=== PATIENT | female | born 1930 | race Caucasian/White ===

== ENCOUNTER 2017-09-16 11:45 | Inpatient (IN) | payer MEDICARE, OTHER ==
[2017-09-16] VITALS (11 sets, daily range): BP systolic 80–111; BP diastolic 41–66; PULSE 73–148; RESP 14–22; Ht 157.5 cm; Wt 71.5 kg
[~2017-09-16] VITALS: Ht 157.5 cm; Wt 71.5 kg
[2017-09-16] MEDS ORDERED: ATOR40TA68 PO (13:28)
[2017-09-16] MEDS ORDERED: ASPI325T4 PO (13:28)
[2017-09-16] MEDS ORDERED: METO-448 PO (13:28)
[2017-09-16] MEDS ORDERED: PANT40TA4 PO (13:28)
[2017-09-16] MEDS ORDERED: NITROL TD (13:36)
[2017-09-16] MEDS ORDERED: FURO40TA4 PO (13:36)
[2017-09-16] MEDS ORDERED: CARV6.2579 PO (13:36)
[2017-09-16] MEDS ORDERED: NITROGLYCERIN (IC) 100 MCG/ML INJ ONE (13:55)
[2017-09-16] MEDS ORDERED: IODIXANOL LOCM 100 ML BTL ONE (13:55)
[2017-09-16] MEDS ORDERED: VERAPAMIL 5 MG INJ ONE (13:55)
[2017-09-16] MEDS ORDERED: LIDOCAINE 1% (MDV) 20 ML INJ ONE (13:55)
[2017-09-16] MEDS ORDERED: MIDAZOLAM 1 MG/ML 2 ML INJ ONE (13:55)
[2017-09-16] MEDS ORDERED: FENTAnyl 50 MCG/ML VIAL ONE (13:55)
[2017-09-16] MEDS ORDERED: HEPARIN 1000 UNITS/ML 10 ML INJ ONE (13:55)
[2017-09-16] MEDS ORDERED: BIVALIRUDIN 250MG /NS 50 ML 50 ML IVPB ONE ×2 (14:52→15:49)
[2017-09-16] MEDS ORDERED: ASPIRIN 325 MG TAB ONE (14:52)
[2017-09-16] MEDS ORDERED: CLOPIDOGREL 300 MG TAB ONE (14:52)
[2017-09-16] MEDS ORDERED: FUROSEMIDE 40 MG INJ ONE ×2 (15:40→16:06)
[2017-09-16] MEDS: EPTIFIBATIDE 100 ML IV SCH ×2 (17:00→18:53)
--- NOTE | 2017-09-16 17:00 | OPR ---
Date/Time of Note Date/Time of Note DATE: 09/16/17 TIME: 17:00 Operative Report Preoperative Diagnosis NSTEMI, cardiomyopathy Postoperative Diagnosis NSTEMI, cardiomyopathy Surgeon see signature line Plugger Man none Anesthesia Type: moderate sedation Estimated Blood Loss: minimal Transfusion none Specimen none Grafts/Implants none Complications none Procedure Description Procedure Date: Food Storeroom Clerk/surgeon: Otilio Schwartz MD. Procedures Performed: 1)Left heart catheterization with selective left and right coronary angiography. 2)Complex two stent bifurcation balloon angioplasty and stenting of the mid LAD with a Synergy 2.5 x 16 and ostial/prox diag with a 2.25 x 20 drug eluting stent complicated by stent thrombosis and eventual ANGELIQUE 1 flow in the diagonal. 3)Right femoral angiography Pre-operative Diagnosis:NSTEMI, cardiomyopathy Post-operative Diagnosis:NSTEMI, cardiomyopathy Indications: 87 yo F with no prior history who presented to [facility] with SOB and was found to have an NSTEMI and CHF. EF was found to be 30 % with LAD territory infarct which likely occurred one month prior when the pt had symptoms. The plan was to do a diagnostic angiography and if the LAD was occluded to then proceed with viability scan but if it were open, to stent if possible. The pt and family were agreeable so the pt was transferred for cardiac cath at [facility]. Description of Procedure: After informed consent, the patient was brought to the cardiac catheterization lab. The procedure site was prepped and draped in usual manner. The patient was premedicated with versed 0.5 mg . 2 mL lidocaine was injected into the left wrist. The radial artery was attempted to be cannulated using ultrasound but was not possible due to vessel size and calcification. Next 5 mL lidocaine was injected into the right groin.Next using micropuncture and the Seldinge technique, the 6 guamanian sheath was inserted into the right femoral artery. Next using the JL4 and JR4, selective angiography of the left and right coronary arteries were obtained. Of note on both catheter exchanges, the femoral sheath clotted and had to be replaced. The pigtail was then advanced into the ventricle and hemodynamics obtained. Left ventricle angiography was not obtained. The decision was made to proceed with PCI of the LAD with provisional technique for the diagonal. A 7 guamanian sheath was inserted. A 6 guamanian JL 3.5 guide was advanced and engaged into the left coronary artery. After appropriate anticoagulation and antiplatelets were given, the Runthrough angioplasty wire was advanced past the LAD lesion and a second wire was advanced into the diagonal. As mentioned, the plan was for balloon angioplasty and stenting only of the LAD however after balloon angioplasty of the LAD with a h2.5 x 12 balloon , there was 99% stenosis and ANGELIQUE 1 flow of the diagonal. The decision was made to dilate the ostial diagonal lesion which was attempted with a 2.0 x 8 balloon. After the dilation however there was a dissection noted and ANGELIQUE 0-1 flow. This was ballooned again and flow restored but again recoiled and flow was lost. At this point the decision was made to proceed with bifurcation stenting using the mini-crush technique. The Synergy 2.25 x 20 stent was advanced and positioned in the diag and extending to the LAD. Then the Synergy 2.5 x 16 stent was positioned in the mid LAD. First the diagonal stent was deployed at nominal pressure. Then the diagonal wire was removed. Then the LAD stent was deployed at nominal pressure. Angiography revealed ANGELIQUE 3 flow to both vessels without further dissection. Attempts were made to rewire the diagonal for possible kissing balloons. This was not possible so the decision was made to post dilate the LAD stent and leave the diagonal (understanding the risk of restenosis at the expense of increased radiation and contrast use). Angiography prior to post dilation unfortunately showed thrombosis of the diagonal stent with thrombus in the LAD stent as well. The LAD stent was dilated with the 2.75 x 12 NC at nominal pressure. Angiography revealed that the LAD stent thrombus had resolved but still no flow in the diagonal. ACT was checked and was >350 so the angiomax was functional. Integrilin was started. Another attempt was made to wire the diagonal this time with a Fielder XT wire. The wire was able to cross into the diagonal but attempts to pass a 1.5 balloon were no successful. At this time, the pt was having ongoing SOB and likely pulm edema. The flow to the diag was now ANGELIQUE 1 and so the procedure was terminated with the hope of flow eventually being restored to the diagonal with continuation of integrilin. At the end of the case, the pt had no chest pain but had SOB and had e/o CHF by exam. She was hemodynamically stable however. After the case, the 7 guamanian sheath was also noted to have clotted. Findings: Anatomy/Hemodynamics: Left main: normal LAD: mid 90% at diagonal Diagonal: ostial 70% Circumflex: mid 50% Obtuse marginal: Luminal irregularities RCA:small vessel with mid 70% PDA:Luminal irregulLuminal irregularities arities PLV:Luminal irregularities LV angiography:not done LV-Ao:no gradient LVEDP: 23 mmHg Contrast used: 190mL Fluoroscopy time: Medications used: Versed 0.5mg Fentanyl 25mcg Angiomax integrilin ASA 325 plavix 600 Equipment used: 6 guamanian JL 3.5 guide Runthrough angioplasty wire x2, PT light, Fielder XT 2.5 x 12 balloon, 2.0 x 8, 1.5 x 8 Synergy 2.5 x 16 drug eluting stent (LAD) Synergy 2.25 x 20 drug eluting stent (diag) (mini-crush) 2.75 x 12 noncompliant balloon Estimated blood loss<10 mL. Specimen: none Grafts/implants: none Complications: none Assessment: NSTEMI s/p complex bifurcation PCI of LAD/diag with stent thrombosis and ANGELIQUE 1 flow in diag Stent thrombosis: Unusual to occur so rapidly during the case with therapeutic angiomax. The pt also had 3 sheaths thrombose so ?hypercoagulable state vs less likely plavix resistance but to be safe will switch to brilinta Acute systolic heart failure: EF 30%. Worse during case CAD with residual RCA disease can be treated PRN ?Hypercoagulable state: three different femoral sheaths thrombosed as did her stents even while on angiomax which is very unusual Plan: -integrilin overnight -continue angiomax 4 hours post-PCI -after angiomax stopped for 2 hours, brilinta 180mg and 90mg BID thereafter -ASA 81mg -will not repeat cath to evaluate diagonal stent unless the pt has significant symptoms as there is a chance flow may be restored but higher risk of complications OTILIO SCHWARTZ Sep 16, 2017 17:00
--- NOTE | 2017-09-16 17:56 | CONS ---
Date/Time of Note Date/Time of Note DATE: 09/16/17 TIME: 17:54 Assessment/Plan Assessment/Plan Chief Complaint/Hosp Course NSTEMI s/p complex bifurcation PCI of LAD/diag with stent thrombosis and ANGELIQUE 1 flow in diag Stent thrombosis: Unusual to occur so rapidly during the case with therapeutic angiomax. The pt also had 3 sheaths thrombose so ?hypercoagulable state vs less likely plavix resistance but to be safe will switch to brilinta Acute systolic heart failure: EF 30%. Worse during case CAD with residual RCA disease can be treated PRN ?Hypercoagulable state: three different femoral sheaths thrombosed as did her stents even while on angiomax which is very unusual Plan: -integrilin overnight -continue angiomax 4 hours post-PCI -after angiomax stopped for 2 hours, brilinta 180mg and 90mg BID thereafter -ASA 81mg -will not repeat cath to evaluate diagonal stent unless the pt has significant symptoms as there is a chance flow may be restored but higher risk of complications -lasix 40mg IV x 2 given during case, will see how pt responds and if she needs more -lipitor if agreeable -coreg 3.125mg BID -EKG post cath -CXR Problems: Consultation Date/Type/Reason Admit Date/Time Sep 16, 2017 at 16:40 Initial Consult Date 24 HR Interval Summary Free Text/Dictation S/p complex PCI of LAD/diagonal. Please see report. Pt with flash pulmonary edema during case and occluded diagonal stent. Exam/Review of Systems Vital Signs Vitals Vital Signs Date Time Temp Pulse Resp B/P Pulse Ox O2 Delivery O2 Flow Rate FiO2 09/16/17 12:35 97.5 80 20 103/53 93 Room Air 2.0 Exam Constitutional: alert, oriented Psych: no complaints Head: atraumatic, normocephalic Neck: jvd (9cm) Respiratory: crackles/rales (mid lungs ), No clear to auscultation Cardiovascular: edema (1+), regular rate and rhythm, No systolic murmur Gastrointestinal: soft Neurological: nl mental status, nl speech Medications Medications Current Medications Miscellaneous Information (* Miscellaneous Pharmacy Order) HOLD all METFORMIN ... ONCE ONCE XX ; Start 09/16/17 at 17:00; Stop 09/16/17 at 17:01 Aspirin (Aspirin) 81 mg DAILY PO ; Start 09/17/17 at 09:00 Clopidogrel Bisulfate (plaVIX) 75 mg DAILY PO ; Start 09/17/17 at 09:00 Atorvastatin Calcium (Lipitor) 40 mg HS PO ; Start 09/16/17 at 21:00 Carvedilol (Coreg) 3.125 mg BID PO ; Start 09/16/17 at 21:00 ARIANA CHICAS Sep 16, 2017 17:56
[2017-09-16] MEDS ORDERED: BIVALIRUDIN 250MG /NS 50 ML 50 ML IVPB SCH (18:00)
--- NOTE | 2017-09-16 19:37 | RADRPT ---
PROCEDURE: XR, Chest. CLINICAL INDICATION: Dyspnea. TECHNIQUE: AP chest COMPARISON: None available. FINDINGS: There is no acute infiltrate in the lungs. There is large bilateral pleural effusion. The heart is somewhat enlarged with interstitial pulmonary edema and pulmonary venous congestion.. IMPRESSION: 1. Large bilateral pleural effusion. 2. Mild cardiomegaly with interstitial pulmonary edema/pulmonary venous congestion. RPTAT: GG .Warren Bella MD, MD Date Time Electronically viewed and signed by .Warren Bella MD, on 09/16/2017 19:37 .Y/
[2017-09-16] MEDS: ATORVASTATIN 40 MG TAB PO SCH (21:00)
[2017-09-16] MEDS ORDERED: TICAGRELOR 90 MG TABLET PO ONE (22:00)
[2017-09-17] VITALS (23 sets, daily range): BP systolic 75–129; BP diastolic 52–79; PULSE 70–96; RESP 12–36
--- NOTE | 2017-09-17 02:15 | HP ---
DATE OF ADMISSION: 09/16/2017 CHIEF COMPLAINT: CHF, NON-STEMI. HISTORY OF PRESENT ILLNESS: This is an 87-year-old female with a past medical history of obesity, w ho presented to an outside hospital Emergency Room complaining of worsening shortness of breath x1 w janna. The patient states that during the past week she has had increasing dyspnea on exertion, incre ased lower extremity edema and progressive decline in physical health. The patient upon arrival to an outside hospital was noted to be in CHF. She was admitted, was treated with diuretic therapy. T he patient also was ruled in for a non-ST elevation myocardial infarction and was transferred to [facility] acute rehab and underwent cardiac catheterization by Dr. Schwartz; during the cou rse of catheterization patient had a PCI to the left anterior descending and diagonal artery disease with stent thrombosis and ANGELIQUE 1 flow in the diagonal. The patient was placed on Angiomax and Inte grilin and admitted to ICU for evaluation. The patient also noted to be in pulmonary edema and was given diuretic therapy. No other events noted. symptoms hematochezia. PAST MEDICAL HISTORY: History of obesity. PAST SURGICAL HISTORY: The patient had shoulder surgery in the past. FAMILY HISTORY: Noncontributory. SOCIAL HISTORY: Does not drink, smoke or do drugs. MEDICATIONS: The patient's medications have been reviewed. The patient has no outpatient medicatio ns. ALLERGIES: NO KNOWN DRUG ALLERGIES. REVIEW OF SYSTEMS: A 14-point review of systems was conducted. Pertinent positives stated in HPI, otherwise negative. PHYSICAL EXAMINATION: VITAL SIGNS: 111/66, respirations 14, pulse 89, temperature 98.0. HEENT: Head is normocephalic. NECK: Supple. HEART: Regular rate. LUNGS: Show diminished breath sounds at the base. ABDOMEN: Soft, nontender to palpation without rebound or guarding. EXTREMITIES: Negative for clubbing, cyanosis, positive edema. DERMATOLOGIC: No rashes. MUSCULOSKELETAL: No joint effusions. NEUROLOGIC: No focal deficits. LABORATORY DATA: from outside hospital was reviewed. Current laboratory data is pending. ASSESSMENT AND PLAN: This is an 87-year-old female who presents with: 1. Non-ST elevation myocardial infarction. The patient is status post percutaneous coronary interv ention to the left anterior descending and diagonal with stent thrombosis. Continue current medical management. Continue aspirin, Plavix. Will continue Integrilin. 2. Acute systolic heart failure. Patient has ejection 30%. Continue current diuretic regimen. 3. Coronary artery disease. Continue medical management. 4. Questionable hypercoagulable state. The patient had an apparent stent thrombosis during the hos pital course. At this point, we will continue current medical management with aspirin and Brilinta. Continue Integrilin. 5. Obesity. Continue dietary modification. Please note, I spent up to 25 minutes of face to face time with the patient. The patient is FULL CO DE. Dictated By: RY MARION DO NR/NTS Conf#: [id number] DID#: [id number] CC: ARIANA SCHWARTZ MD;*End*
[2017-09-17 06:12] LABS: ADD UMIC YES; UR ASCORBIC ACID NEGATIVE (NEGATIVE); UR BILIRUBIN (Dip) NEGATIVE (NEGATIVE); UR BLOOD (Dip) 3+ mg/dL (NEGATIVE); UR CLARITY CLEAR (CLEAR); UR COLOR YELLOW (YELLOW); UR GLUCOSE (Dip) NEGATIVE (NEGATIVE); UR KETONES (Dip) NEGATIVE (NEGATIVE); UR LEUKOCYTE ESTERASE (Dip) NEGATIVE Leu/ul (NEGATIVE); UR NITRITE (Dip) NEGATIVE (NEGATIVE); UR RBC > 182 /HPF (0-5); UR SPECIFIC GRAVITY (Dip) 1.048 (1.003-1.030); UR TOTAL PROTEIN (Dip) NEGATIVE (NEGATIVE); UR UROBILINOGEN (Dip) NEGATIVE (NEGATIVE)
[2017-09-17] MEDS ORDERED: ACETAMINOPHEN 325 MG TAB PO PRN (08:00)
[2017-09-17] MEDS ORDERED: ONDANSETRON 4 MG TAB PO PRN (08:00)
[2017-09-17] MEDS ORDERED: ZOLPIDEM 5 MG TAB PO PRN (08:00)
[2017-09-17 08:06] LABS: ABNORMAL IP MESSAGE 1; BASOPHILS % 0.2 % (0.0-2.0); EOSINOPHILS # 0.1 10^3/ul (0.0-0.5); HEMATOCRIT 36.3 % (37.0-47.0); HEMOGLOBIN 12.5 g/dl (12.0-16.0); LYMPHOCYTES # 0.5 10^3/ul (0.8-2.9); LYMPHOCYTES % 4.9 % (15.0-51.0); MEAN CORPUSCULAR HEMOGLOBIN 31.4 pg (29.0-33.0); MEAN CORPUSCULAR HGB CONC 34.4 g/dl (32.0-37.0); MEAN CORPUSCULAR VOLUME 91.2 fl (82.0-101.0); MEAN PLATELET VOLUME 10.2 fl (7.4-10.4); MONOCYTE # 1.1 10^3/ul (0.3-0.9); MONOCYTES % 10.1 % (0.0-11.0); NEUTROPHILS % 83.4 % (39.0-77.0); PLATELET COUNT 352 10^3/UL (140-415); RED BLOOD COUNT 3.98 10^6/ul (4.20-5.40); RED CELL DISTRIBUTION WIDTH 12.7 % (11.5-14.5); WHITE BLOOD COUNT 10.8 10^3/ul (4.8-10.8)
[2017-09-17 08:11] LABS: POSITIVE DIFF @See below
[2017-09-17 08:25] LABS: CALCIUM 9.1 mg/dl (8.4-10.2); CREATININE 0.79 mg/dl (0.44-1.00); PHOSPHORUS 3.6 mg/dl (2.5-4.9)
--- NOTE | 2017-09-17 08:38 | CONS ---
Date/Time of Note Date/Time of Note DATE: 09/17/17 TIME: 08:33 Assessment/Plan Assessment/Plan Chief Complaint/Hosp Course NSTEMI s/p complex bifurcation PCI of LAD/diag with stent thrombosis and ANGELIQUE 1 flow in diag Stent thrombosis: Unusual to occur so rapidly during the case with therapeutic angiomax. The pt also had 3 sheaths thrombose so ?hypercoagulable state vs less likely plavix resistance but to be safe switched to brilinta Acute systolic heart failure: EF 30%. Worse during case. Now better after diuresis. Mild CHF still by exam CAD with residual RCA disease can be treated PRN ?Hypercoagulable state: three different femoral sheaths thrombosed as did her stents even while on angiomax which is very unusual -d/c integrilin at 10am -ASA 81mg -ticagrelor 90mg BID -lipitor if agreeable (has been refusing) -coreg 3.125mg BID -replete lytes -would keep in ICU one more day unless there is a bed shortage at which point can go to tele -repeat echo to eval lateral wall Problems: Consultation Date/Type/Reason Admit Date/Time Sep 16, 2017 at 16:40 Type of Consultation: Cardiology 24 HR Interval Summary Free Text/Dictation Some runs of NSVT early after cath but none since. No chest pain. Still with mild SOB but improved. No issues on integrilin Exam/Review of Systems Vital Signs Vitals Vital Signs Date Time Temp Pulse Resp B/P Pulse Ox O2 Delivery O2 Flow Rate FiO2 09/17/17 05:00 83 32 117/70 95 Nasal Cannula 4.0 09/17/17 04:00 98.0 Intake and Output 09/16/17 09/16/17 09/17/17 15:00 23:00 07:00 Intake Total 128 ml 230.4 ml Output Total 360 ml 390 ml Balance -232 ml -159.6 ml Exam Constitutional: alert, oriented Psych: nl mood/affect, no complaints Head: atraumatic, normocephalic Neck: jvd (8cm) Respiratory: crackles/rales (mild at bases ), No clear to auscultation Cardiovascular: edema (1+), regular rate and rhythm, No systolic murmur Gastrointestinal: non-tender, soft Extremities: other (right groin no hematoma) Neurological: nl mental status, nl speech Results Result Diagram: 09/17/17 0800 09/17/17 0800 Results 24 hrs Laboratory Tests Test 09/16/17 22:00 09/17/17 08:00 Urine Color YELLOW Urine Clarity CLEAR Urine pH 6.0 Urine Specific [place] 1.048 H Urine Ketones NEGATIVE Urine Nitrite NEGATIVE Urine Bilirubin NEGATIVE Urine Urobilinogen NEGATIVE Urine Leukocyte Esterase NEGATIVE Urine Microscopic RBC > 182 H Urine Microscopic WBC 1 Urine Hemoglobin 3+ H Urine Random Creatinine 42.74 Urine Random Sodium 58 Urine Glucose NEGATIVE Urine Total Protein 14.0 H White Blood Count 10.8 Red Blood Count 3.98 L Hemoglobin 12.5 Hematocrit 36.3 L Mean Corpuscular Volume 91.2 Mean Corpuscular Hemoglobin 31.4 Mean Corpuscular Hemoglobin Concent 34.4 Red Cell Distribution Width 12.7 Platelet Count 352 Mean Platelet Volume 10.2 Neutrophils % 83.4 H Lymphocytes % 4.9 L Monocytes % 10.1 Eosinophils % 1.0 Basophils % 0.2 Nucleated Red Blood Cells % 0.0 Neutrophils # 9.0 H Lymphocytes # 0.5 L Monocytes # 1.1 H Eosinophils # 0.1 Basophils # 0.0 Nucleated Red Blood Cells # 0.0 Sodium Level 135 Potassium Level 3.0 L Chloride Level 97 Carbon Dioxide Level 28 Anion Gap 13 Blood Urea Nitrogen 26 H Creatinine 0.79 Glucose Level 119 Calcium Level 9.1 Phosphorus Level 3.6 Magnesium Level 2.0 Medications Medications Current Medications Aspirin (Aspirin) 81 mg DAILY PO ; Start 09/17/17 at 09:00 Atorvastatin Calcium (Lipitor) 40 mg HS PO ; Start 09/16/17 at 21:00 Carvedilol (Coreg) 3.125 mg BID PO ; Start 09/16/17 at 21:00 Ticagrelor 90 mg 90 mg BID PO ; Start 09/17/17 at 09:00 Eptifibatide (Integrilin) 100 ml @ 4.29 mls/hr [id number] IV Last administered on 09/16/17t 17:00; Admin Dose 4.29 MLS/HR; Start 09/16/17 at 18:00; Stop at 10:00 Furosemide (Lasix) 20 mg DAILY IV ; Start 09/17/17 at 09:00 Acetaminophen (Tylenol Tab) 650 mg Q6H PRN PO PAIN AND OR ELEVATED TEMP; Start 09/17/17 at 08:00 Ondansetron HCl (Zofran Tab) 4 mg Q6H PRN PO NAUSEA AND/OR VOMITING; Start at 08:00 Zolpidem Tartrate (Ambien) 5 mg HS PRN PO INSOMNIA; Start 09/17/17 at 08:00 ARIANA CHICAS Sep 17, 2017 08:38
[2017-09-17] MEDS: TICAGRELOR 90 MG TABLET PO SCH ×2 (08:58→20:29)
[2017-09-17] MEDS ORDERED: FUROSEMIDE 20 MG INJ IV SCH (09:00)
[2017-09-17] MEDS ORDERED: CLOPIDOGREL 75 MG TAB PO SCH (09:00)
[2017-09-17] MEDS: ASPIRIN 81 MG TAB PO SCH (09:00)
[2017-09-17] MEDS ORDERED: POTASSIUM CHLORIDE 20 MEQ POWDER FOR ORAL SOLN PO ONE (09:00)
[2017-09-17] MEDS: POTASSIUM CHLORIDE 50 ML IVPB SCH ×2 (09:04→11:30)
[2017-09-17] MEDS ORDERED: MAGNESIUM SULFATE 2 GM/50 ML 50 ML IVPB ONE (10:30)
--- NOTE | 2017-09-17 10:35 | RADRPT ---
PROCEDURE: XR Chest. CLINICAL INDICATION: Shortness of breath TECHNIQUE: Single AP view of the chest was obtained COMPARISON: Yesterday FINDINGS: Stable cardiomegaly and pleural effusions. Decreased patchy opacities in the upper lungs. IMPRESSION: Improved aeration at the upper lungs bilaterally. Stable moderate pleural effusions with cardiomegal y. RPTAT: HMPE Destiny Mckeon Physician Date Time Electronically viewed and signed by Destiny Mckeon Physician on 09/17/2017 10:35 KS/
--- NOTE | 2017-09-17 12:22 | PN ---
DATE: 09/17/2017 SUBJECTIVE: The patient had insomnia last night, unable to sleep. No other events noted. No hemop tysis, hematemesis or hematochezia. The patient is complaining of some mild shortness of breath. OBJECTIVE: VITAL SIGNS: Blood pressure is 117/70, pulse 83, temperature 98.0, saturating 99% on 4 liters nasal cannula. HEENT: Head is normocephalic. Pupils are reactive to light. NECK: Supple. HEART: Regular rate. LUNGS: Show diminished breath sounds at base. Positive rhonchi and crackles. ABDOMEN: Soft, nontender to palpation. No rebound or guarding. EXTREMITIES: Negative for clubbing, cyanosis. Trace edema. DERMATOLOGIC: No rashes. MUSCULOSKELETAL: No joint effusions. NEUROLOGIC: No focal deficits. LABORATORY DATA: From this morning is currently pending. The patient's urinalysis did show a RBCs greater than 182, +3 hemoglobin, and protein creatinine ratio of 500 mg per gram of creatinine. IMAGING: Chest x-ray shows large bilateral pleural effusions, cardiomegaly with pulmonary edema, pu lmonary vascular congestion. ASSESSMENT AND PLAN: 1. Non-ST elevation myocardial infarction. The patient is status post percutaneous coronary interv ention with intervention to left anterior descending and diagonal with stent thrombosis. Continue c urrent medical management. Continue Brilinta, aspirin and Coreg. 2. Acute diastolic heart failure. The patient currently decompensated. Continue diuretic regimen. 3. Coronary artery disease. Continue medical management. 4. Obesity. Continue dietary modification. 5. Gastrointestinal and deep vein thrombosis prophylaxis. Continue proton pump inhibitor and seque ntial leg squeezers. 5. Questionable hypercoagulable state. Will continue to monitor. 6. Debility. We will place a physical therapy consult for evaluation. Dictated By: RY MARION DO NR/LIANET Conf#: [id number] DID#: [id number] CC: ARIANA CHICAS MD;*EndCC*
--- NOTE | 2017-09-17 15:15 | RADRPT ---
Vent Rate: 76 bpm RR Interval: 0 msec MS Interval: 164 msec QRS Duration: 100 msec QT Interval: 436 msec QTC Interval: 490 msec P-R-T [place]: 58 - 92 - 102 degrees Normal sinus rhythm Cannot rule out Inferior infarct , age undetermined Anterolateral infarct , age undetermined Abnormal ECG Electronically Signed By: Stuart aJved [id number]
--- NOTE | 2017-09-17 17:41 | RADRPT ---
Echocardiogram Report Patient Name: RAO PULIDO Gender: Female Date: 1930 Study Date: 17-Sep-2017 Adhesive Bandage Making Operator: Kathy [facility] Location: [address] Ref. Physician: ARIANA SCHWARTZ Quality: Adequate Procedures: Transthoracic echocardiogram with complete 2D, M-Mode, and doppler examination. Indications: Cardiomyopathy. Congestive Heart Failure. NSTEMI. 2D/M Mode Doppler Measurement Value Normal Ranges Measurement Value Normal Ranges LVIDd 2D 4.3 3.5 - 5.6 cm AV Peak Jesus Alberto 1.1 m/sec LVIDs 2D 3.4 2.1 - 4.1 cm AV Peak PG 4.0 mmHg FS 2D 19.7 % LVOT Peak Jesus Alberto 0.7 m/sec LVPWd 2D 1.1 0.6 - 1.1 cm LVOT Peak PG 2.0 mmHg IVSd 2D 1.1 0.6 - 1.1 cm MV E Peak Jesus Alberto 1.1 m/sec IVS/LVPW 2D 1.0 MV Decel Time 134 msec AoR Diam 2D 2.8 2.0 - 3.7 cm TR Peak Jesus Alberto 3.1 m/sec LA/Ao 2D 1 0 - 1 TR Peak PG 38.0 mmHg EDV 2D 77.9 cm3 RVSP 46.0 mmHg ESV 2D 40.4 cm3 LA Dimen 2D 3.1 2.3 - 4.0 cm Findings Left Ventricle: Left ventricular wall thickness upper limits of normal. Moderate enlargement of left ventricle cavity. Severe left ventricular systolic dysfunction. Ejection fraction is visually estimated at 25 %. Severe hypokinesis/akinesis of the mid-distal septum, anterior, and inferior garcia with akinesis of the apex. The basal and mid inferolateral and lateral garcia have better contractility. No obvious thrombus seen. Right Ventricle: Normal right ventricular size. Normal right ventricular systolic function. Left Atrium: There is moderate enlargement of left atrium. Right Atrium: There is moderate enlargement of right atrium. Mitral Valve: Mild mitral leaflet calcification. Mild mitral annular calcification. Mild mitral valve regurgitation. Aortic Valve: Normal appearance of the aortic valve. No significant aortic stenosis or insufficiency. Tricuspid Valve: Normal appearance of the tricuspid valve. Estimated peak PA systolic pressure 46 mmHg. There is mild to moderate tricuspid regurgitation. Pulmonic Valve: Pulmonic valve not well visualized. There is trace pulmonic regurgitation. Pericardium: Trivial pericardial effusion. Left pleural effusion seen. Aorta: Normal aortic root. IVC: Normal size with poor respiratory collapse consistent with elevated right atrial pressure. Conclusions Left ventricular wall thickness upper limits of normal. Moderate enlargement of left ventricle cavity. Severe left ventricular systolic dysfunction. Ejection fraction is visually estimated at 25 %. Severe hypokinesis/akinesis of the mid-distal septum, anterior, and inferior garcia with akinesis of the apex. The basal and mid inferolateral and lateral garcia have better contractility. No obvious thrombus seen. Mild-moderate tricuspid regurgitation. Left pleural effusion seen. Estimated peak PA systolic pressure 46 mmHg based on RA pressure of 3 mmHg. Electronically Signed By: Ariana Schwartz 17-Sep-2017 17:41:19 -0800 Patient Name: RAO PULIDO Study Date: 17-Sep-2017 [id number]
[2017-09-17] MEDS: ATORVASTATIN 40 MG TAB PO SCH (20:25)
[2017-09-18] VITALS (22 sets, daily range): BP systolic 50–122; BP diastolic 39–74; PULSE 66–95; RESP 15–35
[2017-09-18 06:42] LABS: BASOPHILS % 0.3 % (0.0-2.0); EOSINOPHILS # 0.3 10^3/ul (0.0-0.5); EOSINOPHILS % 3.6 % (0.0-7.0); HEMATOCRIT 35.3 % (37.0-47.0); HEMOGLOBIN 11.8 g/dl (12.0-16.0); LYMPHOCYTES # 0.7 10^3/ul (0.8-2.9); LYMPHOCYTES % 8.4 % (15.0-51.0); MEAN CORPUSCULAR HEMOGLOBIN 30.9 pg (29.0-33.0); MEAN CORPUSCULAR HGB CONC 33.4 g/dl (32.0-37.0); MEAN CORPUSCULAR VOLUME 92.4 fl (82.0-101.0); MEAN PLATELET VOLUME 10.4 fl (7.4-10.4); MONOCYTE # 0.9 10^3/ul (0.3-0.9); MONOCYTES % 10.4 % (0.0-11.0); NEUTROPHIL # 6.6 10^3/ul (1.6-7.5); PLATELET COUNT 319 10^3/UL (140-415); RED BLOOD COUNT 3.82 10^6/ul (4.20-5.40); RED CELL DISTRIBUTION WIDTH 12.6 % (11.5-14.5); WHITE BLOOD COUNT 8.6 10^3/ul (4.8-10.8)
[2017-09-18 07:24] LABS: CALCIUM 8.6 mg/dl (8.4-10.2); CREATININE 0.83 mg/dl (0.44-1.00); MAGNESIUM 2.5 mg/dl (1.7-2.5); PHOSPHORUS 3.4 mg/dl (2.5-4.9); POTASSIUM 3.3 mmol/L (3.5-5.1)
--- NOTE | 2017-09-18 07:51 | CONS ---
Date/Time of Note Date/Time of Note DATE: 09/18/17 TIME: 06:59 Assessment/Plan Assessment/Plan Chief Complaint/Hosp Course NSTEMI s/p complex bifurcation PCI of LAD/diag with stent thrombosis and ANGELIQUE 1 flow in diag Stent thrombosis: Unusual to occur so rapidly during the case with therapeutic angiomax. The pt also had 3 sheaths thrombose so ?hypercoagulable state vs less likely plavix resistance but to be safe switched to brilinta Acute systolic heart failure: EF 25%. Worse pulm edema during case. Better with diuresis. Worse again today CAD with residual RCA disease can be treated PRN ?Hypercoagulable state: three different femoral sheaths thrombosed as did her stents even while on angiomax which is very unusual -ok for tele -increase lasix to 20mg IV BID -ASA 81mg -ticagrelor 90mg BID -lipitor if agreeable -coreg 3.125mg BID -replete lytes Problems: Consultation Date/Type/Reason Admit Date/Time Sep 16, 2017 at 16:40 Type of Consultation: Cardiology 24 HR Interval Summary Free Text/Dictation No arrhythmias. Still with SOB. No chest pain. Exam/Review of Systems Vital Signs Vitals Vital Signs Date Time Temp Pulse Resp B/P Pulse Ox O2 Delivery O2 Flow Rate FiO2 09/18/17 04:00 90 09/18/17 02:27 3.0 31 09/18/17 02:00 24 116/61 97 Nasal Cannula 09/18/17 00:00 98.2 Intake and Output 09/17/17 09/17/17 09/18/17 15:00 23:00 07:00 Intake Total 390 ml 160 ml Output Total 310 ml 205 ml 55 ml Balance 80 ml -45 ml -55 ml Exam Constitutional: alert, oriented Psych: nl mood/affect, no complaints Head: atraumatic, normocephalic Neck: jvd (7-8cm) Respiratory: crackles/rales, No clear to auscultation (crackles ) Cardiovascular: regular rate and rhythm, No edema, No systolic murmur Gastrointestinal: non-tender, soft Neurological: nl mental status, nl speech Results Result Diagram: 09/18/17 0531 09/17/17 0800 Results 24 hrs Laboratory Tests Test 09/17/17 08:00 09/18/17 05:31 White Blood Count 10.8 8.6 # Red Blood Count 3.98 L 3.82 L Hemoglobin 12.5 11.8 L Hematocrit 36.3 L 35.3 L Mean Corpuscular Volume 91.2 92.4 Mean Corpuscular Hemoglobin 31.4 30.9 Mean Corpuscular Hemoglobin Concent 34.4 33.4 Red Cell Distribution Width 12.7 12.6 Platelet Count 352 319 Mean Platelet Volume 10.2 10.4 Neutrophils % 83.4 H 77.0 Lymphocytes % 4.9 L 8.4 L Monocytes % 10.1 10.4 Eosinophils % 1.0 3.6 Basophils % 0.2 0.3 Nucleated Red Blood Cells % 0.0 0.0 Neutrophils # 9.0 H 6.6 Lymphocytes # 0.5 L 0.7 L Monocytes # 1.1 H 0.9 Eosinophils # 0.1 0.3 Basophils # 0.0 0.0 Nucleated Red Blood Cells # 0.0 0.0 Sodium Level 135 Potassium Level 3.0 L Chloride Level 97 Carbon Dioxide Level 28 Anion Gap 13 Blood Urea Nitrogen 26 H Creatinine 0.79 Glucose Level 119 Calcium Level 9.1 Phosphorus Level 3.6 Magnesium Level 2.0 Medications Medications Current Medications Aspirin (Aspirin) 81 mg DAILY PO Last administered on 09/17/17 09:00; Admin Dose 81 MG; Start 09/17/17 at 09:00 Atorvastatin Calcium (Lipitor) 40 mg HS PO Last administered on 09/17/17 20: 25; Admin Dose 40 MG; Start 09/16/17 at 21:00 Carvedilol (Coreg) 3.125 mg BID PO Last administered on 09/17/17 20:28; Admin Dose 3.125 MG; Start 09/16/17 at 21:00 Ticagrelor (Brilinta) 90 mg BID PO Last administered on 09/17/17 20:29; Admin Dose 90 MG; Start 09/17/17 at 09:00 Acetaminophen (Tylenol Tab) 650 mg Q6H PRN PO PAIN AND OR ELEVATED TEMP; Start 09/17/17 at 08:00 Ondansetron HCl (Zofran Tab) 4 mg Q6H PRN PO NAUSEA AND/OR VOMITING; Start at 08:00 Zolpidem Tartrate (Ambien) 5 mg HS PRN PO INSOMNIA; Start 09/17/17 at 08:00 Furosemide (Lasix) 20 mg BID IV ; Start 09/18/17 at 09:00; Status ARIANA ESCOBAR Sep 18, 2017 07:51
[2017-09-18] MEDS ORDERED: POTASSIUM CHLORIDE 20 MEQ POWDER FOR ORAL SOLN PO ONE (08:00)
[2017-09-18] MEDS: ASPIRIN 81 MG TAB PO SCH (09:24)
[2017-09-18] MEDS: FUROSEMIDE 20 MG INJ IV SCH ×2 (09:26→18:49)
[2017-09-18] MEDS: TICAGRELOR 90 MG TABLET PO SCH ×2 (09:29→20:23)
--- NOTE | 2017-09-18 10:35 | CONS ---
Date/Time of Note Date/Time of Note DATE: 09/18/17 TIME: 10:34 Consultation Date/Type/Reason Admit Date/Time Sep 16, 2017 at 16:40 Date of Consultation: Sep 18, 2017 Type of Consultation: Pulmonary/critical care Hx of Present Illness Consultation dictated #[id number] Social History Smoking Status: Former smoker Exam/Review of Systems Vital Signs Vitals Vital Signs Date Time Temp Pulse Resp B/P Pulse Ox O2 Delivery O2 Flow Rate FiO2 09/18/17 10:00 66 31 110/63 97 Nasal Cannula 09/18/17 08:00 3.0 09/18/17 07:00 97.6 09/18/17 02:27 31 Intake and Output 09/17/17 09/17/17 09/18/17 14:59 22:59 06:59 Intake Total 390 ml 160 ml 40 ml Output Total 315 ml 215 ml 190 ml Balance 75 ml -55 ml -150 ml Results Result Diagram: 09/18/17 0531 09/18/17 0531 Results 24 hrs Laboratory Tests Test 09/18/17 05:31 White Blood Count 8.6 # Red Blood Count 3.82 L Hemoglobin 11.8 L Hematocrit 35.3 L Mean Corpuscular Volume 92.4 Mean Corpuscular Hemoglobin 30.9 Mean Corpuscular Hemoglobin Concent 33.4 Red Cell Distribution Width 12.6 Platelet Count 319 Mean Platelet Volume 10.4 Neutrophils % 77.0 Lymphocytes % 8.4 L Monocytes % 10.4 Eosinophils % 3.6 Basophils % 0.3 Nucleated Red Blood Cells % 0.0 Neutrophils # 6.6 Lymphocytes # 0.7 L Monocytes # 0.9 Eosinophils # 0.3 Basophils # 0.0 Nucleated Red Blood Cells # 0.0 Sodium Level 134 L Potassium Level 3.3 L Chloride Level 99 Carbon Dioxide Level 30 Anion Gap 8 Blood Urea Nitrogen 29 H Creatinine 0.83 Glucose Level 102 Calcium Level 8.6 Phosphorus Level 3.4 Magnesium Level 2.5 Medications Medications Current Medications Aspirin (Aspirin) 81 mg DAILY PO Last administered on 09/18/17 09:24; Admin Dose 81 MG; Start 09/17/17 at 09:00 Atorvastatin Calcium (Lipitor) 40 mg HS PO Last administered on 09/17/17 20: 25; Admin Dose 40 MG; Start 09/16/17 at 21:00 Carvedilol (Coreg) 3.125 mg BID PO Last administered on 09/18/17 09:25; Admin Dose 3.125 MG; Start 09/16/17 at 21:00 Ticagrelor (Brilinta) 90 mg BID PO Last administered on 09/18/17 09:29; Admin Dose 90 MG; Start 09/17/17 at 09:00 Acetaminophen (Tylenol Tab) 650 mg Q6H PRN PO PAIN AND OR ELEVATED TEMP; Start 09/17/17 at 08:00 Ondansetron HCl (Zofran Tab) 4 mg Q6H PRN PO NAUSEA AND/OR VOMITING; Start at 08:00 Zolpidem Tartrate (Ambien) 5 mg HS PRN PO INSOMNIA; Start 09/17/17 at 08:00 CHRISTINA CARLSON Sep 18, 2017 10:35
--- NOTE | 2017-09-18 11:28 | PN ---
DATE: 09/18/2017 SUBJECTIVE: The patient is stable, currently in intensive care unit on 3 liters nasal cannula. The patient had no other acute events overnight. No hemoptysis, hematemesis or hematochezia. OBJECTIVE: VITAL SIGNS: Blood pressure is 122/72, respiratory rate 20, pulse 81, temperature 97.6. HEENT: Head is normocephalic. NECK: Supple. HEART: Regular rate. LUNGS: Show diminished breath sounds at the base. ABDOMEN: Soft, nontender to palpation without rebound or guarding. EXTREMITIES: No clubbing, cyanosis, no edema. DERMATOLOGIC: No rash. MUSCULOSKELETAL: No joint effusions. NEUROLOGIC: No change in exam. MEDICATIONS: The patient's medications have been reviewed. LABORATORY DATA: Shows sodium 134, potassium 3.3, BUN 29, creatinine 0.83. White count 8.6, hemogl obin 11.8, platelet count is 319. ASSESSMENT AND PLAN: 1. Non-ST elevation myocardial infarction. The patient is status post percutaneous coronary interv ention to left anterior descending. Continue current medical management with Brilinta, aspirin, Cor eg. 2. Acute diastolic heart failure. The patient is decompensated. Continue medical management. Con tinue current diuretic regimen. 3. Coronary artery disease. Continue current treatment plan. 4. Obesity. Continue dietary modification. 5. Debility. Continue physical therapy. 6. Acute respiratory failure secondary to congestive heart failure. Continue diuretic therapy. We will place a pulmonary consult with Dr. Golden for further evaluation. 7. Gastrointestinal and deep venous thrombosis prophylaxis. Continue proton pump inhibitor and seq uential leg squeezers. Dictated By: RY OTERO/LIANET Conf#: [id number] DID#: [id number]
--- NOTE | 2017-09-18 11:50 | CONS ---
DATE OF ADMISSION: 09/16/2017 DATE OF CONSULTATION: 09/18/2017 PULMONARY CRITICAL CARE CONSULTATION REFERRING PHYSICIAN: Dr. Mik Browning. REASON FOR REFERRAL: Evaluation of shortness of breath. HISTORY OF PRESENT ILLNESS: Ms. Milian is a pleasant 87-year-old female who was admitted to the [facility] 2 days ago with complaints of shortness of breath and chest pain. Upon evaluation, the patien t was diagnosed with non-ST elevation OK and underwent angiography with stenting of coronary arterie s. The patient also was in mild CHF and was transferred to ICU. By the time I saw the patient, the patient was feeling much better, currently sitting in a chair. Denies any further chest pain, shor tness of breath is markedly improved. Denies any coughing, hemoptysis, sputum production, fever or chills. PAST MEDICAL HISTORY: No prior history of any coronary artery disease or any significant illnesses. MEDICATIONS: Reviewed. The patient is currently on: 1. Lasix 20 mg IV q. 12 hours. 2. Coreg 3.125 mg b.i.d. 3. Lipitor 40 mg a day. 4. Aspirin 81 mg a day. 5. Acetaminophen on a p.r.n. basis. 6. Potassium on a p.r.n. basis. 7. Brilinta 90 mg b.i.d. 8. Zofran on a p.r.n. basis. ALLERGIES: NONE. SOCIAL HISTORY: Never smoked. No history of alcohol or drug abuse. FAMILY HISTORY: The patient is single. She has 3 children. 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 REVIEW OF SYSTEMS: Denies any headache, visual changes, sinus symptoms, seizures, postnasal drip, d ysphagia, odynophagia, chest pain, shortness of breath has markedly improved. Denies any coughing, wheezing, sputum production, hemoptysis, any abdominal pain, melena, hematochezia, edema. Complains of very mild orthopnea. Denies any edema, any weight change. PHYSICAL EXAMINATION: GENERAL: Elderly woman, awake, alert, currently in no distress. VITAL SIGNS: Temperature is 98.8 degrees Fahrenheit, respiratory rate is 18 per minute, heart rate 92 per minute, sinus rhythm, blood pressure is 110/64, O2 saturation 97% on 2 liter nasal cannula. Urine output is adequate. HEENT: Supple neck, positive JVD, no lymphadenopathy, midline trachea, no thyromegaly. Pharynx krissy ar, no neck bruits. Patient has multiple carious teeth. Pupils are small bilaterally. CHEST: Minimally decreased breath sounds at lung bases. Upper lobes are clear to auscultation. HEART: S1, S2 audible. No murmurs, regular rhythm. ABDOMEN: Soft, nontender, nondistended. Bowel sounds audible, no organomegaly. EXTREMITIES: No edema. Pulses 1+ bilaterally. CENTRAL NERVOUS SYSTEM: No focal deficit. LABORATORY DATA: Today sodium 134, potassium 3.3, chloride 99, bicarb 30, BUN 29, creatinine 0.8. White count 8.6, hemoglobin 11.8, platelet count of 319. Chest x-ray was reviewed from yesterday at 10:35 a.m. which is showing mild pulmonary edema. ASSESSMENT AND RECOMMENDATION: 1. The patient admitted with acute myocardial infarction, status post emergent angioplasty with mar ked improvement in symptoms. 2. Mild congestive heart failure with interval improvement. RECOMMENDATIONS: Continue current supportive care. The patient responding well to current treatmen t regimen. Dictated By: CHRISTINA CARLSON MD AQ/NTS Conf#: [id number] DID#: [id number] CC: ARIANA CHICAS MD;*EndCC*
[2017-09-18 14:47] LABS: MICROALBUMIN 2.8 mg/dL
[2017-09-18] MEDS: ATORVASTATIN 40 MG TAB PO SCH (20:20)
[2017-09-19] VITALS (10 sets, daily range): BP systolic 96–129; BP diastolic 60–66; PULSE 74–88; RESP 18–20
[2017-09-19] MEDS: FUROSEMIDE 20 MG INJ IV SCH (05:47)
[2017-09-19] MEDS: ASPIRIN 81 MG TAB PO SCH (07:48)
--- NOTE | 2017-09-19 11:15 | CONS ---
Date/Time of Note Date/Time of Note DATE: 09/19/17 TIME: 11:12 Consult Date/Type/Reason Admit Date/Time Sep 16, 2017 at 16:40 Initial Consult Date 09/18/17 Type of Consultation: im neph Subjective The patient is stable, currently in telemetry. The patient had no other acute events overnight. No hemoptysis, hematemesis or hematochezia. HEENT: Head is normocephalic. NECK: Supple. HEART: Regular rate. LUNGS: Show diminished breath sounds at the base. ABDOMEN: Soft, nontender to palpation without rebound or guarding. EXTREMITIES: No clubbing, cyanosis, no edema. DERMATOLOGIC: No rash. MUSCULOSKELETAL: No joint effusions. NEUROLOGIC: No change in exam. MEDICATIONS: The patient's medications have been reviewed. Objective Vital Signs Date Time Temp Pulse Resp B/P Pulse Ox O2 Delivery O2 Flow Rate FiO2 09/19/17 08:04 82 09/19/17 07:54 Nasal Cannula 2.0 09/19/17 07:35 98.1 18 96/60 94 09/18/17 16:09 21 Intake and Output 09/18/17 09/18/17 09/19/17 15:00 23:00 07:00 Intake Total 820 ml 100 ml 100 ml Output Total 425 ml 405 ml 350 ml Balance 395 ml -305 ml -250 ml Results/Medications Result Diagram: 09/18/17 0531 09/18/17 0531 Medications Current Medications Aspirin (Aspirin) 81 mg DAILY PO Last administered on 09/18/17 09:24; Admin Dose 81 MG; Start 09/17/17 at 09:00 Atorvastatin Calcium (Lipitor) 40 mg HS PO Last administered on 09/18/17 20:20 ; Admin Dose 40 MG; Start 09/16/17 at 21:00 Carvedilol (Coreg) 3.125 mg BID PO Last administered on 09/18/17 20:21; Admin Dose 3.125 MG; Start 09/16/17 at 21:00 Ticagrelor (Brilinta) 90 mg BID PO Last administered on 09/18/17 20:23; Admin Dose 90 MG; Start 09/17/17 at 09:00 Acetaminophen (Tylenol Tab) 650 mg Q6H PRN PO PAIN AND OR ELEVATED TEMP; Start 09/17/17 at 08:00 Ondansetron HCl (Zofran Tab) 4 mg Q6H PRN PO NAUSEA AND/OR VOMITING; Start at 08:00 Zolpidem Tartrate (Ambien) 5 mg HS PRN PO INSOMNIA; Start 09/17/17 at 08:00 Assessment/Plan Chief Complaint/Hosp Course 1. Non-ST elevation myocardial infarction. The patient is status post percutaneous coronary intervention to left anterior descending. Continue current medical management with Brilinta, aspirin, Coreg. 2. Acute diastolic heart failure. The patient is better compensated. Continue medical management. Continue current diuretic regimen. 3. Coronary artery disease. Continue current treatment plan. 4. Obesity. Continue dietary modification. 5. Debility. Continue physical therapy. 6. Acute respiratory failure secondary to congestive heart failure. Continue diuretic therapy. appreciate pulmonary consult with Dr. Golden. 7. Gastrointestinal and deep venous thrombosis prophylaxis. Continue proton pump inhibitor and sequential leg squeezers. Problems: BIN IBARRA MD Sep 19, 2017 11:15
[2017-09-19] MEDS: TICAGRELOR 90 MG TABLET PO SCH (11:19)
--- NOTE | 2017-09-19 11:54 | PN ---
Date/Time of Note Date/Time of Note DATE: 09/19/17 TIME: 11:51 Assessment/Plan VTE Prophylaxis VTE Prophylaxis Intervention: ambulation Lines/Catheters IV Catheter Type (from Nrs): Mid Line Urinary Cath still in place: No Assessment/Plan Assessment/Plan 1. cad ok post cath/stent discussed compliance 2. chf euvolemic switch to po meds 3. lipids statin ok dc today see me 1 week discussed with pt, daughter and dr romero Subjective 24 Hr Interval Summary Free Text/Dictation no cp or sob walking trouble sleeping Exam/Review of Systems Vital Signs Vitals Vital Signs Date Time Temp Pulse Resp B/P Pulse Ox O2 Delivery O2 Flow Rate FiO2 09/19/17 11:30 98.1 73 118/64 95 09/19/17 07:54 Nasal Cannula 2.0 09/19/17 07:35 18 09/18/17 16:09 21 Intake and Output 09/18/17 09/18/17 09/19/17 14:59 22:59 06:59 Intake Total 620 ml 300 ml 100 ml Output Total 409 ml 465 ml 350 ml Balance 211 ml -165 ml -250 ml Exam Constitutional: alert, oriented Head: atraumatic, normocephalic Eyes: EOMI, nl conjunctiva, nl lids ENMT: nl external ears & nose, nl lips & teeth, nl nasal mucosa & septum Neck: non-tender, supple Respiratory: clear to auscultation Cardiovascular: regular rate and rhythm Gastrointestinal: nl liver, spleen, non-tender, soft Musculoskeletal: nl extremities to inspection, nl gait and stance Extremities: normal pulses Neurological: nl speech, nl strength Skin: nl turgor Results Result Diagram: 09/18/17 0531 09/18/17 0531 Results 24 hrs Laboratory Tests Test 09/19/17 11:22 White Blood Count Pending Red Blood Count Pending Hemoglobin Pending Hematocrit Pending Mean Corpuscular Volume Pending Mean Corpuscular Hemoglobin Pending Mean Corpuscular Hemoglobin Concent Pending Red Cell Distribution Width Pending Platelet Count Pending Mean Platelet Volume Pending Medications Medications Current Medications Aspirin (Aspirin) 81 mg DAILY PO Last administered on 09/18/17 09:24; Admin Dose 81 MG; Start 09/17/17 at 09:00 Atorvastatin Calcium (Lipitor) 40 mg HS PO Last administered on 09/18/17 20:20 ; Admin Dose 40 MG; Start 09/16/17 at 21:00 Carvedilol (Coreg) 3.125 mg BID PO Last administered on 09/18/17 20:21; Admin Dose 3.125 MG; Start 09/16/17 at 21:00 Ticagrelor (Brilinta) 90 mg BID PO Last administered on 09/19/17 11:19; Admin Dose 90 MG; Start 09/17/17 at 09:00 Acetaminophen (Tylenol Tab) 650 mg Q6H PRN PO PAIN AND OR ELEVATED TEMP; Start 09/17/17 at 08:00 Ondansetron HCl (Zofran Tab) 4 mg Q6H PRN PO NAUSEA AND/OR VOMITING; Start at 08:00 Zolpidem Tartrate (Ambien) 5 mg HS PRN PO INSOMNIA; Start 09/17/17 at 08:00 ISAEL KWON MD Sep 19, 2017 11:54
[2017-09-19 11:55] LABS: BASOPHILS % 0.5 % (0.0-2.0); EOSINOPHILS # 0.2 10^3/ul (0.0-0.5); EOSINOPHILS % 1.9 % (0.0-7.0); HEMOGLOBIN 11.5 g/dl (12.0-16.0); LYMPHOCYTES # 0.7 10^3/ul (0.8-2.9); LYMPHOCYTES % 8.4 % (15.0-51.0); MEAN CORPUSCULAR HEMOGLOBIN 30.9 pg (29.0-33.0); MEAN CORPUSCULAR HGB CONC 33.8 g/dl (32.0-37.0); MEAN CORPUSCULAR VOLUME 91.4 fl (82.0-101.0); MEAN PLATELET VOLUME 10.6 fl (7.4-10.4); MONOCYTE # 0.9 10^3/ul (0.3-0.9); MONOCYTES % 10.7 % (0.0-11.0); NEUTROPHIL # 6.9 10^3/ul (1.6-7.5); NEUTROPHILS % 77.9 % (39.0-77.0); PLATELET COUNT 363 10^3/UL (140-415); RED BLOOD COUNT 3.72 10^6/ul (4.20-5.40); RED CELL DISTRIBUTION WIDTH 12.8 % (11.5-14.5); WHITE BLOOD COUNT 8.8 10^3/ul (4.8-10.8)
[2017-09-19] MEDS ORDERED: ATOR40TA68 PO (12:12)
[2017-09-19] MEDS ORDERED: FURO40TA4 PO (12:12)
[2017-09-19] MEDS ORDERED: CLOP75TA27 PO (12:12)
--- NOTE | 2017-09-19 12:15 | DS ---
Date/Time of Note Date/Time of Note DATE: 09/19/17 TIME: 12:13 Discharge Summary Admission/Discharge Info Admit Date/Time Sep 16, 2017 at 16:40 Discharge Date/Time 09/19/17 Discharge Diagnosis 1. Non-ST elevation myocardial infarction. The patient is status post percutaneous coronary intervention to left anterior descending. Continue current medical management with Brilinta, aspirin, Coreg. 2. Acute diastolic heart failure. The patient is better compensated. Continue medical management. Continue current diuretic regimen. 3. Coronary artery disease. Continue current treatment plan. 4. Obesity. Continue dietary modification. 5. Debility. Continue physical therapy. 6. Acute respiratory failure secondary to congestive heart failure. Continue diuretic therapy. appreciate pulmonary consult with Dr. Golden. 7. Gastrointestinal and deep venous thrombosis prophylaxis. Continue proton pump inhibitor and sequential leg squeezers. Patient Condition: Good Consults card, pulmonary Hx of Present Illness admitted from outside hosp with mi. referred for pci. Hospital Course 1. Non-ST elevation myocardial infarction. The patient is status post percutaneous coronary intervention to left anterior descending. Continue current medical management with Brilinta, aspirin, Coreg. 2. Acute diastolic heart failure. The patient is better compensated. Continue medical management. Continue current diuretic regimen. 3. Coronary artery disease. Continue current treatment plan. 4. Obesity. Continue dietary modification. 5. Debility. Continue physical therapy. 6. Acute respiratory failure secondary to congestive heart failure. Continue diuretic therapy. appreciate pulmonary consult with Dr. Golden. 7. Gastrointestinal and deep venous thrombosis prophylaxis. Continue proton pump inhibitor and sequential leg squeezers. Home Meds Reported Medications Nitroglycerin* (Nitro-Bid* Oint (30gm)) 1 Inch Oint, 1 INCH TD Q8, TUB 09/16/17 Furosemide* (Furosemide*) 40 Mg Tablet, 40 MG PO Q12, TAB 09/16/17 Carvedilol* (Carvedilol*) 6.25 Mg Tablet, 6.25 MG PO Q12, #60 TAB 09/16/17 Atorvastatin* (Atorvastatin*) 40 Mg Tablet, 40 MG PO QHS, #30 TAB 09/16/17 Aspirin* (Aspirin*) 325 Mg Tablet, 325 MG PO DAILY, TAB 09/16/17 Metoprolol Tartrate* (Lopressor*) 25 Mg Tab, 25 MG PO Q12, #60 TAB 09/16/17 Pantoprazole* (Pantoprazole*) 40 Mg Tablet.dr, 40 MG PO AC BREAKFAST, TAB 09/16/17 Follow-up Plan with cards in less than 1 week. Primary Care Provider Otilio Schwartz Time spent on discharge: < 30 minutes Pending Labs Laboratory Tests Test 09/19/17 11:22 White Blood Count 8.810^3/ul (4.8-10.8) Red Blood Count 3.7210^6/ul (4.20-5.40) Hemoglobin 11.5g/dl (12.0-16.0) Hematocrit 34.0% (37.0-47.0) Mean Corpuscular Volume 91.4fl (82.0-101.0) Mean Corpuscular Hemoglobin 30.9pg (29.0-33.0) Mean Corpuscular Hemoglobin Concent 33.8g/dl (32.0-37.0) Red Cell Distribution Width 12.8% (11.5-14.5) Platelet Count 39807^3/UL (140-415) Mean Platelet Volume 10.6fl (7.4-10.4) Neutrophils % 77.9% (39.0-77.0) Lymphocytes % 8.4% (15.0-51.0) Monocytes % 10.7% (0.0-11.0) Eosinophils % 1.9% (0.0-7.0) Basophils % 0.5% (0.0-2.0) Nucleated Red Blood Cells % 0.0/100WBC (0.0-0.0) Neutrophils # 6.910^3/ul (1.6-7.5) Lymphocytes # 0.710^3/ul (0.8-2.9) Monocytes # 0.910^3/ul (0.3-0.9) Eosinophils # 0.210^3/ul (0.0-0.5) Basophils # 0.010^3/ul (0.0-0.1) Nucleated Red Blood Cells # 0.010^3/ul (0.0-0.0) BIN IBARRA MD Sep 19, 2017 12:15
[2017-09-19 12:17] LABS: CALCIUM 8.9 mg/dl (8.4-10.2); CREATININE 0.85 mg/dl (0.44-1.00); POTASSIUM 3.1 mmol/L (3.5-5.1)
--- NOTE | 2017-09-19 12:31 | CONS ---
Date/Time of Note Date/Time of Note DATE: 09/19/17 TIME: 12:29 Consult Date/Type/Reason Admit Date/Time Sep 16, 2017 at 16:40 Initial Consult Date 09/18/17 Type of Consultation: Pulm/CCM Subjective No events. Doing well. Objective Vital Signs Date Time Temp Pulse Resp B/P Pulse Ox O2 Delivery O2 Flow Rate FiO2 09/19/17 12:05 74 09/19/17 11:30 98.1 118/64 95 09/19/17 07:54 Nasal Cannula 2.0 09/19/17 07:35 18 09/18/17 16:09 21 Intake and Output 09/18/17 09/18/17 09/19/17 15:00 23:00 07:00 Intake Total 820 ml 100 ml 100 ml Output Total 425 ml 405 ml 350 ml Balance 395 ml -305 ml -250 ml Exam HEENT: Supple neck, positive JVD, no lymphadenopathy, midline trachea, no thyromegaly. P CHEST: Minimally decreased breath sounds at lung bases. Upper lobes are clear to auscultation. HEART: S1, S2 audible. No murmurs, regular rhythm. ABDOMEN: Soft, nontender, nondistended. Bowel sounds audible, no organomegaly. EXTREMITIES: No edema. Pulses 1+ bilaterally Results/Medications Result Diagram: 09/19/17 1122 09/19/17 1122 Results 24 hrs Laboratory Tests Test 09/19/17 11:22 White Blood Count 8.8 Red Blood Count 3.72 L Hemoglobin 11.5 L Hematocrit 34.0 L Mean Corpuscular Volume 91.4 Mean Corpuscular Hemoglobin 30.9 Mean Corpuscular Hemoglobin Concent 33.8 Red Cell Distribution Width 12.8 Platelet Count 363 Mean Platelet Volume 10.6 H Neutrophils % 77.9 H Lymphocytes % 8.4 L Monocytes % 10.7 Eosinophils % 1.9 Basophils % 0.5 Nucleated Red Blood Cells % 0.0 Neutrophils # 6.9 Lymphocytes # 0.7 L Monocytes # 0.9 Eosinophils # 0.2 Basophils # 0.0 Nucleated Red Blood Cells # 0.0 Sodium Level 135 Potassium Level 3.1 L Chloride Level 99 Carbon Dioxide Level 30 Anion Gap 9 Blood Urea Nitrogen 28 H Creatinine 0.85 Glucose Level 120 Calcium Level 8.9 Medications Current Medications Aspirin (Aspirin) 81 mg DAILY PO Last administered on 09/18/17 09:24; Admin Dose 81 MG; Start 09/17/17 at 09:00 Atorvastatin Calcium (Lipitor) 40 mg HS PO Last administered on 09/18/17 20:20 ; Admin Dose 40 MG; Start 09/16/17 at 21:00 Carvedilol (Coreg) 3.125 mg BID PO Last administered on 09/18/17 20:21; Admin Dose 3.125 MG; Start 09/16/17 at 21:00 Ticagrelor (Brilinta) 90 mg BID PO Last administered on 09/19/17 11:19; Admin Dose 90 MG; Start 09/17/17 at 09:00 Acetaminophen (Tylenol Tab) 650 mg Q6H PRN PO PAIN AND OR ELEVATED TEMP; Start 09/17/17 at 08:00 Ondansetron HCl (Zofran Tab) 4 mg Q6H PRN PO NAUSEA AND/OR VOMITING; Start at 08:00 Zolpidem Tartrate (Ambien) 5 mg HS PRN PO INSOMNIA; Start 09/17/17 at 08:00 Assessment/Plan Additional Assessment/Plan IMP: 1. s/p NSTEMI with PCI 2. CHF RECS: 1. As per Cardiology. 2. Mobilize OOB 3. D/C planning KASSIDY WOOD MD Sep 19, 2017 12:31
[2017-09-19] MEDS ORDERED: POTASSIUM CHLORIDE (SR) 20 MEQ TAB PO STA (13:02)
== END 2017-09-19 17:30 | disposition home or self-care (01) | DRG 246 ==
LOC: SDS 11:45 → CCL 11:45 → ICU 16:40 → SDS 16:40 → TEL 09-18 22:04
PROVIDERS: ADMIT Internal Medicine Interventional Cardiology; ATTEND Internal Medicine Interventional Cardiology
PROC: B211YZZ Fluoroscopy of Multiple Coronary Arteries using Other Contrast (ICD-10-PCS; 2017-09-16)
PROC: 3E033PZ Introduction of Platelet Inhibitor into Peripheral Vein, Percutaneous Approach (ICD-10-PCS; 2017-09-16)
PROC: 0271356 Dilation of Coronary Artery, Two Arteries, Bifurcation, with Two Drug-eluting Intraluminal Devices, Percutaneous Approach (ICD-10-PCS; principal; 2017-09-16 14:00)
PROC: 4A023N7 Measurement of Cardiac Sampling and Pressure, Left Heart, Percutaneous Approach (ICD-10-PCS; 2017-09-16 14:00)
DX: I21.4 Non-ST elevation (NSTEMI) myocardial infarction (principal); I50.21 Acute systolic (congestive) heart failure; J96.00 Acute respiratory failure, unspecified whether with hypoxia or hypercapnia; I42.9 Cardiomyopathy, unspecified; D68.59 Other primary thrombophilia; T82.867A Thrombosis due to cardiac prosthetic devices, implants and grafts, initial encounter; I47.1 Supraventricular tachycardia; I11.0 Hypertensive heart disease with heart failure; I25.10 Atherosclerotic heart disease of native coronary artery without angina pectoris; Y71.8 Miscellaneous cardiovascular devices associated with adverse incidents, not elsewhere classified; Y92.234 Operating room of hospital as the place of occurrence of the external cause; E66.9 Obesity, unspecified; Z68.28 Body mass index [BMI] 28.0-28.9, adult; Z87.891 Personal history of nicotine dependence
CPT/HCPCS: 71010; 80048; 81001; 81003; 82043; 83735; 84100; 84155; 84300; 85025; 87081; 93005; 93306; 93458; 97162; J1940; C1725; C1874; C1887; C1894; C9600; J0583; J1327; J1644; J2250; J3010; J3475; J3480; Q9967